=== PATIENT | female | born 1955 | race Two or more races ===

== ENCOUNTER 2020-04-12 05:45 | Day surgery (SDC) | payer OTHER ==
[~2020-04-12] VITALS: Ht 170.2 cm; Wt 87.1 kg
[~2020-04-12 05:45] MED LIST: COZAAR25 MG PO; HYDROCHLOROTHIA25 MG PO; TOPROL XL100 M1 PO
== END 2020-04-13 13:00 | disposition home or self-care (01) ==
LOC: CIR.AMB 05:45 → O/R 05:45 → SURH 05:45 → EDSTATUS 09:00 → SURH 17:34 → O/R 17:34 → SURH 04-13 11:12 → CIR.AMB 04-13 13:00
PROVIDERS: ATTEND Student in an Organized Health Care Education/Training Program
DX: N80.0 Endometriosis of uterus (principal); N72 Inflammatory disease of cervix uteri